=== PATIENT | female | born 2000 | race Caucasian/White ===

== ENCOUNTER 2023-05-11 16:42 | Emergency (ER) | payer OTHER ==
[2023-05-11] MEDS ORDERED: HYDROCODONE/APAP 10/325 TAB ONE (17:25)
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
[2023-05-11] MEDS ORDERED: KETOROLAC 30 MG/ML INJ ONE (18:46)
[2023-05-11 19:23] VITALS: TEMP 97.6
[2023-05-11 19:24] VITALS: BP 127/70; O2SAT 100
== END 2023-05-11 18:54 | disposition home or self-care (01) ==
LOC: ER 16:42
DX: S16.1XXA Strain of muscle, fascia and tendon at neck level, initial encounter (principal); M54.50 Low back pain, unspecified; V49.9XXA Car occupant (driver) (passenger) injured in unspecified traffic accident, initial encounter; Z91.048 Other nonmedicinal substance allergy status
CPT/HCPCS: 72040; 72170; 96372; 99284